=== PATIENT | female | born 1930 | race Caucasian/White ===

== ENCOUNTER → 2016-06-16 | Outpatient (CLI) | payer MEDICARE, MEDICAID | LOC: RAD 08:58 | PROVIDERS: ATTEND Specialist | DX: M54.2 Cervicalgia (principal); M46.02 Spinal enthesopathy, cervical region | CPT/HCPCS: 72050; 72141 ==

== ENCOUNTER → 2017-10-24 | Outpatient (CLI) | payer MEDICARE, MEDICAID ==
--- NOTE | 2017-10-24 11:34 | RADIOLOGY REPORT (SQ) ---
EXAM DESCRIPTION: U/S RETROPERITON (RENAL/AORTA) COMPLETED DATE/TIME: 10/24/2017 11:23 am REASON FOR STUDY: CKD STAGE 3 N18.3 CHRONIC KIDNEY DISEASE, STAGE 3 (MODERATE) R80.9 PROTEINURIA, UNSPECIFIED COMPARISON: 07/29/2011 TECHNIQUE: Dynamic and static grayscale images acquired of the kidneys and bladder and recorded on P ACS. Additional selected color Doppler and spectral images recorded. LIMITATIONS: None. FINDINGS: RIGHT KIDNEY: The right kidney is atrophic in appearance and measures 7.2 cm. A 1.1 x 0. 8 by 1.6 cm cyst. Diffuse increased echogenicity of the kidney, suggests underlying medical renal di sease. No hydronephrosis. No calcifications. LEFT KIDNEY: The left kidney measures 13.1 cm in length, normal size. Multiple cysts are identified . One of the largest measures 4.5 x 4.5 x 2.5 cm in the upper pole. No hydronephrosis. No calcifica tions. Diffuse increased echogenicity of the kidney suggests underlying medical renal disease. BLADDER: No masses. OTHER FINDINGS: Incidentally, fatty liver is suggested. IMPRESSION: 1 The right kidney is atrophic in appearance. 2 Bilateral renal cysts, more numerous on the left. 3. Diffuse increased echogenicity of the kidneys, suggests underlying medical renal disease. TECHNICAL DOCUMENTATION: JOB ID: [id number]- All Rights Reserved Reading location - IP/workstation name: [email or web address]
== END ==
LOC: RAD 09:54
PROVIDERS: ATTEND Internal Medicine Nephrology
DX: I12.9 Hypertensive chronic kidney disease with stage 1 through stage 4 chronic kidney disease, or unspecified chronic kidney disease (principal); N18.3 Chronic kidney disease, stage 3 (moderate); R80.9 Proteinuria, unspecified; Q61.02 Congenital multiple renal cysts
CPT/HCPCS: 76770

== ENCOUNTER → 2018-02-14 | Outpatient (CLI) | payer MEDICARE, MEDICAID ==
--- NOTE | 2018-02-14 15:50 | RADIOLOGY REPORT (SQ) ---
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 TECHNIQUE: Images of the axial and proximal appendicular skeleton are obtained, along with lateral s kull and frontal chest films. LIMITATIONS: None. FINDINGS: AP CHEST: No bony findings. Lungs are clear. LATERAL SKULL: No worrisome bone lesions. AP BOTH HUMERI: No worrisome bone lesions. TWO-VIEW LUMBAR SPINE: No worrisome bone lesions. TWO-VIEW THORACIC SPINE: No worrisome bone lesions. AP PELVIS: No worrisome bone lesions. Marked degenerative changes in the hips. AP BOTH FEMURS: No worrisome bone lesions. OTHER: No other significant finding. IMPRESSION: NO WORRISOME BONE LESIONS. TECHNICAL DOCUMENTATION: JOB ID: [id number] [employer]- All Rights Reserved Reading location - IP/workstation name: [email or web address]
== END ==
LOC: RAD 17:18
PROVIDERS: ATTEND Internal Medicine
DX: D47.2 Monoclonal gammopathy (principal)
CPT/HCPCS: 77075

== ENCOUNTER 2018-04-25 07:06 | Emergency (ER) | payer MEDICARE, MEDICAID ==
[2018-04-25] MEDS ORDERED: ONDANSETRON HCL INJ/PF 4 MG/2 ML SDV IV ONE (08:09)
[2018-04-25 08:16] LABS: ALANINE AMINOTRANSFERASE 24 U/L (9-52); ALBUMIN 4.6 g/dL (3.5-5.0); ALKALINE PHOSPHATASE 164 U/L (38-126); ANION GAP 13 (5-19); ASPARTATE AMINO TRANSFERASE 36 U/L (14-36); BILIRUBIN,DIRECT 0.3 mg/dL (0.0-0.4); BILIRUBIN,TOTAL 0.4 mg/dL (0.2-1.3); BLOOD UREA NITROGEN 65 mg/dL (7-20); CALCIUM 10.9 mg/dL (8.4-10.2); CARBON DIOXIDE 24 mmol/L (22-30); CHLORIDE 105 mmol/L (98-107); CREATINE KINASE 60 U/L (30-135); GLUCOSE 198 mg/dL (75-110); POTASSIUM 4.3 mmol/L (3.6-5.0); SODIUM 141.9 mmol/L (137-145); TOTAL PROTEIN 8.4 g/dL (6.3-8.2)
[2018-04-25 08:17] LABS: HEMOGLOBIN 10.7 g/dL (12.0-15.5); MEAN CORPUSCULAR HEMOGLOBIN 31.2 pg (27.0-33.4); MEAN CORPUSCULAR HGB CONC 33.4 g/dL (32.0-36.0); MEAN CORPUSCULAR VOLUME 93 fl (80-97); PLATELET COUNT 360 10^3/uL (150-450); RED BLOOD COUNT 3.43 10^6/uL (3.72-5.28); RED CELL DISTRIBUTION WIDTH 15.9 % (11.5-14.0); WHITE BLOOD COUNT 15.9 10^3/uL (4.0-10.5)
--- NOTE | 2018-04-25 08:17 | ER Document Report ---
Addendum entered and electronically signed by MEGHA LARA PA-C 04/25/18 15:22: Critical Care Note - Critical Care Note Total time excluding time spent on procedures (mins): 38 - in total with frequent reassessment. Did not initially calculate the added phone calls and consults with Dr. Jackson. Addendum entered and electronically signed by MEGHA LARA PA-C 04/25/18 15:15: Critical Care Note - Critical Care Note Total time excluding time spent on procedures (mins): 20 Original Note: ED General - General Chief Complaint: Nausea/Vomiting Stated Complaint: THROWING UP Time Seen by Provider: 04/25/18 08:07 TRAVEL OUTSIDE OF THE [place] IN LAST 30 DAYS: No - HPI Notes: Patient is an 88-year-old female with a history of chronic anemia, chronic kidney disease stage III in setting of solitary kidney, hypertension who presents to the emergency department complaining of nausea and vomiting over the last day. Patient states that she began vomiting after she ate dinner yesterday. Patient states that since then she has just been dry heaving. She has not been able to eat or drink as much because of the nausea and dry heaving. Patient states that she is still urinating normally and having normal bowel movements otherwise. She denies any significant cardiac history. Patient states that she has not had any pain. Denies drug allergies. Denies any headache, fever, neck pain, changes in vision/speech/mentation/hearing, URI, sore throat, chest pain, palpitations, syncope, cough, shortness of breath, wheeze, dyspnea, abdominal pain, diarrhea, urinary retention, dysuria, hematuria, back pain, loss of control of bowel or bladder, numbness/tingling, saddle anesthesia, muscle paralysis/weakness, or rash. - Related Data Allergies/Adverse Reactions: No Known Allergies Allergy (Verified 04/25/18 07:12) Past Medical History - Social History Smoking Status: Never Smoker Family History: Reviewed & Not Pertinent Patient has suicidal ideation: No Patient has homicidal ideation: No - Past Medical History Cardiac Medical History: Reports: Hx Hypercholesterolemia, Hx Hypertension Denies: Hx Heart Attack Pulmonary Medical History: Denies: Hx Asthma, Hx Bronchitis, Hx COPD, Hx Pneumonia, Hx Tuberculosis Neurological Medical History: Denies: Hx Cerebrovascular Accident, Hx Seizures Renal/ Medical History: Denies: Hx Peritoneal Dialysis Musculoskeletal Medical History: Reports Hx Arthritis Past Surgical History: Reports: Hx Appendectomy, Hx Hysterectomy, Hx Tonsillectomy. Denies: Hx Pacemaker - Immunizations Hx Diphtheria, Pertussis, Tetanus Vaccination: Yes Hx Pneumococcal Vaccination: 01/16/13 Review of Systems - Review of Systems -: Yes All other systems reviewed and negative Physical Exam - Vital signs Vitals: Temp 98.4 F 04/25/18 07:15 - Notes Notes: PHYSICAL EXAMINATION: GENERAL: Well-appearing, well-nourished and in no acute distress. A&Ox4. answers questions appropriately. HEAD: Atraumatic, normocephalic. EYES: Pupils equal round and reactive to light, extraocular movements intact, sclera anicteric, conjunctiva are normal. ENT: Nares patent and without discharge. oropharynx clear without exudates. No tonsilar hypertrophy or erythema. Moist mucous membranes. NECK: Normal range of motion, supple without lymphadenopathy LUNGS: Breath sounds clear to auscultation bilaterally and equal. No wheezes rales or rhonchi. HEART: Regular rate and rhythm without murmurs, rubs, gallops. ABDOMEN: Soft, nontender, nondistended abdomen. No guarding, no rebound. No masses appreciated. Normal bowel sounds present. No CVA tenderness bilaterally. Musculoskeletal: FROM to passive/active. Strength 5+/5. Extremities: No cyanosis, clubbing, or edema b/l. Peripheral pulses 2+. Capillary refill less than 3 seconds. NEUROLOGICAL: Cranial nerves grossly intact. Normal speech, normal gait. PSYCH: Normal mood, normal affect. SKIN: Warm, Dry, normal turgor, no rashes or lesions noted. Course - Re-evaluation Re-evalutation: 04/25/18 12:50 Upon receiving the delta trop result, Dr. Jackson was consulted. EKG also ordered along with the Coags that have already been drawn. Heparin, Lipitor, and aspirin ordered. 2nd EKG showed + change primarily in V2 with elevation, minimal reciprocal (some inversions in 1 and avL). Spoke with Dr. Alonzo at the STEMI hotline for [facility]. If we are going to lytic then he will accept; otherwise, consult with their case specialist. Due to the questionable nature of these new developments, we will consult with the case specialist prior to using lytics per Dr. Jackson. Call placed to speak with their case specialist on-call and EKG's faxed. 04/25/18 13:33 Dr. Moore reviewed EKG and states this is more of an NSTEMI and to treat with heparin and transfer to hospitalist service. Waiting for call back from the hospitalist at this time. 04/25/18 13:57 Dr. Ford, hospitalist, accepted pt to [facility]. Pt has no new concerns or complaints. Vitals acceptable. 04/25/18 15:10 Transport arrived for the patient. No new concerns or complaints. Vitals acceptable. Pt stable for transport. - Vital Signs Vital signs: Temp Pulse Resp BP Pulse Ox 98.4 F 102 H 12 146/73 H 96 04/25/18 07:18 04/25/18 07:18 04/25/18 14:01 04/25/18 14:00 04/25/18 14:01 - Laboratory Result Diagrams: 04/25/18 07:44 04/25/18 07:44 Laboratory results interpreted by me: 04/25/18 04/25/18 04/25/18 07:44 07:44 11:10 WBC 15.9 H RBC 3.43 L Hgb 10.7 L Hct 32.0 L RDW 15.9 H Seg Neuts % (Manual) 86 H Lymphocytes % (Manual) 7 L Abs Neuts (Manual) 13.7 H BUN 65 H Creatinine 2.83 H Est GFR ( Amer) 19 L Est GFR (Non-Af Amer) 16 L Glucose 198 H Calcium 10.9 H Alkaline Phosphatase 164 H Total Protein 8.4 H Urine Protein >=500 H Urine Blood MODERATE H Ur Leukocyte Esterase LARGE H Discharge - Discharge Clinical Impression: NSTEMI (non-ST elevated myocardial infarction), Acute UTI (urinary tract infection) CKD (chronic kidney disease) Qualifiers: Chronic kidney disease stage: unspecified stage Qualified Code(s): N18.9 - Chronic kidney disease, unspecified Condition: Stable Disposition: [facility] Referrals: AIMEE GONZALES MD [Primary Care Provider] - Follow up as needed
--- NOTE | 2018-04-25 08:24 | RADIOLOGY REPORT (SQ) ---
EXAM DESCRIPTION: CHEST SINGLE VIEW COMPLETED DATE/TIME: 04/25/2018 8:01 am REASON FOR STUDY: chest pain COMPARISON: 08/13/2008 EXAM PARAMETERS: NUMBER OF VIEWS: One view. TECHNIQUE: Single frontal radiographic view of the chest acquired. RADIATION DOSE: NA LIMITATIONS: None. FINDINGS: LUNGS AND PLEURA: No airspace opacity. There is a lucency at the lateral margin of the le ft lung base. No pleural effusion. Hyperinflation MEDIASTINUM AND HILAR STRUCTURES: No masses. Contour normal. HEART AND VASCULAR STRUCTURES: Heart normal in size. Normal vasculature. BONES: No acute findings. HARDWARE: None in the chest. OTHER: No other significant finding. IMPRESSION: There is a lucency of the lateral margin of the left lung base concerning for a small pn eumothorax, however if present this is an unusual configuration at the left lung base without evidenc e a more typical appearing apical component. Correlate for clinical concern such as rib fracture. C onsider follow-up PA and lateral radiographs or CT if indicated by clinical concern. There is no dis placed fracture or other obvious etiology. TECHNICAL DOCUMENTATION: JOB ID: [id number] [employer]- All Rights Reserved Reading location - IP/workstation name: [email or web address]
[2018-04-25 08:28] LABS: CREATINE KINASE MB 1.14 ng/mL (<4.55); TROPONIN I 0.022 ng/mL
[2018-04-25 08:41] LABS: ABSOLUTE LYMPHOCYTES# (MANUAL) 1.1 10^3/uL (0.5-4.7); ABSOLUTE MONOCYTES # (MANUAL) 1.1 10^3/uL (0.1-1.4); ABSOLUTE NEUTROPHILS# (MANUAL) 13.7 10^3/uL (1.7-8.2); BASOPHILS % (MANUAL) 0 % (0-2); EOSINOPHILS % (MANUAL) 0 % (0-6); LYMPHOCYTES % (MANUAL) 7 % (13-45); MONOCYTES % (MANUAL) 7 % (3-13); SEGMENTED NEUTROPHILS % (MAN) 86 % (42-78); TOTAL CELLS COUNTED 100
[2018-04-25 08:42] LABS: ANISOCYTOSIS SLIGHT; OVALOCYTES SLIGHT; PLATELET COMMENT ADEQUATE; POIKILOCYTOSIS SLIGHT; POLYCHROMASIA SLIGHT
[2018-04-25] MEDS: NORMAL SALINE 1000 ML 1,000 ML IV PRN ×2 (09:05→10:21)
[2018-04-25] MEDS ORDERED: MORPHINE SULFATE 10 MG/ML INJ IV ONE (09:42)
[2018-04-25] MEDS ORDERED: FENTANYL CITRATE INJ/PF 100 MCG/2 ML AMPUL IV ONE (11:07)
[2018-04-25 11:31] LABS: APPEARANCE,URINE CLOUDY; BILIRUBIN,URINE NEGATIVE (NEGATIVE); COLOR,URINE YELLOW; GLUCOSE, URINE NEGATIVE (NEGATIVE); KETONES,URINE NEGATIVE (NEGATIVE); LEUKOCYTE ESTERASE,URINE LARGE (NEGATIVE); NITRITE,URINE NEGATIVE (NEGATIVE); PROTEIN,URINE >=500 mg/dL (NEGATIVE); URINE SPECIFIC GRAVITY 1.011; UROBILINOGEN,URINE NEGATIVE mg/dL (<2.0)
--- NOTE | 2018-04-25 12:10 | RADIOLOGY REPORT (SQ) ---
EXAM DESCRIPTION: CHEST 2 VIEWS COMPLETED DATE/TIME: 04/25/2018 12:01 pm REASON FOR STUDY: re-eval LLL after spirometry COMPARISON: 04/25/2018 at 0759 hours. EXAM PARAMETERS: NUMBER OF VIEWS: two views TECHNIQUE: Digital Frontal and Lateral radiographic views of the chest acquired. RADIATION DOSE: NA LIMITATIONS: none FINDINGS: LUNGS AND PLEURA: Mild elevation of the left hemidiaphragm. Mild interstitial prominence. No opacities, masses or pneumothorax. No pleural effusion. MEDIASTINUM AND HILAR STRUCTURES: No masses or contour abnormalities. HEART AND VASCULAR STRUCTURES: Heart normal size. No evidence for failure. BONES: No acute findings. HARDWARE: None in the chest. OTHER: No other significant finding. IMPRESSION: MILD CHRONIC CHANGES WITH MILD INTERSTITIAL PROMINENCE. NO ACUTE RADIOGRAPHIC FINDING I N THE CHEST. NO PNEUMOTHORAX. TECHNICAL DOCUMENTATION: JOB ID: [id number] [employer]- All Rights Reserved Reading location - IP/workstation name: [email or web address]
[2018-04-25] MEDS ORDERED: CEFTRIAXONE 1 GM/D5W RTU 1 GM/50 ML RTUPB IV ONE (12:15)
[2018-04-25] MEDS ORDERED: ASPIRIN 81 MG TABLET, CHEWABLE PO ONE (12:29)
[2018-04-25] MEDS ORDERED: HEPARIN SOD (PORCINE) 1,000 UNIT/ML 10 ML VIAL IV ONE (12:32)
[2018-04-25] MEDS ORDERED: HEPARIN SODIUM,PORCINE/D5W 25,000 UNIT/250 ML RTUINJ IV PRN (12:32)
[2018-04-25] MEDS ORDERED: ATORVASTATIN CALCIUM 80 MG TABLET PO ONE (12:33)
--- NOTE | 2018-04-25 12:57 | EKG REPORT ---
SEVERITY:- ABNORMAL ECG - SINUS RHYTHM PROBABLE LEFT ATRIAL ABNORMALITY PROBABLE LEFT VENTRICULAR HYPERTROPHY : Confirmed by: Martin Mccormick MD 25-Apr-2018 12:57:00
--- NOTE | 2018-04-25 12:57 | EKG REPORT ---
SEVERITY:- ABNORMAL ECG - SINUS TACHYCARDIA FIRST DEGREE AV BLOCK LVH BY VOLTAGE PROBABLE INFERIOR INFARCT, OLD ST ELEVATION, CONSIDER ANTERIOR INJURY : Confirmed by: Martin Mccormick MD 25-Apr-2018 12:56:37
[2018-04-25] MEDS ORDERED: HEPARIN SOD (PORCINE) 1,000 UNIT/ML 10 ML VIAL IV PRN (13:30)
[2018-04-25 13:50] LABS: INTERNATIONAL RATION (INR) 1.04; PROTHROMBIN TIME 14.2 SEC (11.4-15.4)
[2018-04-25 13:51] LABS: PARTIAL THROMBOPLASTIN TIME 34.7 SEC (23.5-35.8)
[2018-04-25 14:48] VITALS: BP 146/73
== END 2018-04-25 15:05 | disposition short-term general hospital (02) ==
LOC: ER 07:06
DX: I21.4 Non-ST elevation (NSTEMI) myocardial infarction (principal); N18.3 Chronic kidney disease, stage 3 (moderate); I12.9 Hypertensive chronic kidney disease with stage 1 through stage 4 chronic kidney disease, or unspecified chronic kidney disease; Q60.0 Renal agenesis, unilateral
CPT/HCPCS: 93005; 36415; 87086; 82553; 82550; 83690; 85025; 85610; 85730; 87088; 80053; 81001; 84484; 87186; 71046; 71045; 93010; J1644 ×2; A9270 ×2; J3010; J2270; J2405; J7030; J0696; 96361; 96365; 96366; 96375; 96376; 99291

== ENCOUNTER 2018-05-12 20:22 | Inpatient (IN) | payer MEDICARE, MEDICAID ==
[2018-05-12] MEDS ORDERED: NORMAL SALINE 1000 ML 500 ML IV ONE (20:44)
[2018-05-12 20:54] LABS: ABSOLUTE EOSINOPHILS # (AUTO) 0.1 10^3/uL (0.0-0.6); ABSOLUTE LYMPHOCYTES (AUTO) 0.9 10^3/uL (0.5-4.7); ABSOLUTE MONOCYTES (AUTO) 0.9 10^3/uL (0.1-1.4); ABSOLUTE NEUT (AUTO) 14.4 10^3/uL (1.7-8.2); BASOPHILS % (AUTO) 0.2 % (0-2); EOSINOPHILS % (AUTO) 0.6 % (0-6); HEMATOCRIT 28.2 % (36.0-47.0); HEMOGLOBIN 9.1 g/dL (12.0-15.5); LYMPHOCYTES % (AUTO) 5.5 % (13-45); MEAN CORPUSCULAR HEMOGLOBIN 30.3 pg (27.0-33.4); MEAN CORPUSCULAR HGB CONC 32.3 g/dL (32.0-36.0); MEAN CORPUSCULAR VOLUME 94 fl (80-97); MONOCYTES % (AUTO) 5.3 % (3-13); PLATELET COUNT 524 10^3/uL (150-450); RED BLOOD COUNT 3.01 10^6/uL (3.72-5.28); RED CELL DISTRIBUTION WIDTH 17.4 % (11.5-14.0); SEGMENTED NEUTROPHILS % (AUTO) 88.4 % (42-78); TOTAL CELLS COUNTED % (AUTO) 100 %; WHITE BLOOD COUNT 16.3 10^3/uL (4.0-10.5)
[2018-05-12] MEDS ORDERED: ASPIRIN 81 MG TABLET, CHEWABLE PO ONE (21:07)
[2018-05-12 21:08] LABS: ALANINE AMINOTRANSFERASE 28 U/L (9-52); ALBUMIN 3.9 g/dL (3.5-5.0); ALKALINE PHOSPHATASE 132 U/L (38-126); ANION GAP 14 (5-19); ASPARTATE AMINO TRANSFERASE 67 U/L (14-36); BILIRUBIN,DIRECT 0.4 mg/dL (0.0-0.4); BILIRUBIN,TOTAL 0.6 mg/dL (0.2-1.3); BLOOD UREA NITROGEN 104 mg/dL (7-20); CALCIUM 9.2 mg/dL (8.4-10.2); CARBON DIOXIDE 22 mmol/L (22-30); CHLORIDE 101 mmol/L (98-107); GLUCOSE 195 mg/dL (75-110); POTASSIUM 4.6 mmol/L (3.6-5.0); SODIUM 136.8 mmol/L (137-145); TOTAL PROTEIN 6.9 g/dL (6.3-8.2)
[2018-05-12] MEDS ORDERED: FUROSEMIDE INJ/PF 20 MG/2 ML SDV IV ONE (21:08)
[2018-05-12] MEDS ORDERED: HEPARIN SOD (PORCINE) 1,000 UNIT/ML 10 ML VIAL IV ONE (21:08)
[2018-05-12] MEDS ORDERED: HEPARIN SODIUM,PORCINE/D5W 25,000 UNIT/250 ML RTUINJ IV PRN (21:08)
--- NOTE | 2018-05-12 21:13 | ER Document Report ---
ED General - General Chief Complaint: General Weakness Stated Complaint: WEAKNESS Time Seen by Provider: 05/12/18 20:42 Cannot obtain history due to: Unstable vital signs, Altered mental status Notes: Patient is an 88-year-old female with a past medical history of previous myocardial infarction, hyperlipidemia, hypertension, presents with progressive weakness and deterioration since being discharged from [facility] on the 11th of this month. Family notes that the patient has had increasing bilateral lower extremity edema, has had increasing difficulty getting out of bed. They also report that she has been sleeping in a recliner as she has been unable to lie flat in her bed due to orthopnea. They contacted EMS today as patient was increasingly weak and less responsive. The patient asks me to obtain the majority of history from her son but does concur with what her son is reporting. TRAVEL OUTSIDE OF THE [place] IN LAST 30 DAYS: No - Related Data Allergies/Adverse Reactions: No Known Allergies Allergy (Verified 04/25/18 07:12) Past Medical History - General Information source: Patient, Relative - Social History Smoking Status: Never Smoker Frequency of alcohol use: None Drug Abuse: None Lives with: Family Family History: Reviewed & Not Pertinent - Past Medical History Cardiac Medical History: Reports: Hx Hypercholesterolemia, Hx Hypertension Denies: Hx Heart Attack Pulmonary Medical History: Denies: Hx Asthma, Hx Bronchitis, Hx COPD, Hx Pneumonia, Hx Tuberculosis Neurological Medical History: Denies: Hx Cerebrovascular Accident, Hx Seizures Renal/ Medical History: Denies: Hx Peritoneal Dialysis Musculoskeletal Medical History: Reports Hx Arthritis Past Surgical History: Reports: Hx Appendectomy, Hx Hysterectomy, Hx Tonsillectomy. Denies: Hx Pacemaker - Immunizations Hx Diphtheria, Pertussis, Tetanus Vaccination: Yes Hx Pneumococcal Vaccination: 01/16/13 Review of Systems - Review of Systems Notes: Constitutional: Negative for fever. Positive for generalized weakness HENT: Negative for sore throat. Eyes: Negative for visual changes. Cardiovascular: Negative for chest pain. Respiratory: Positive for shortness of breath and orthopnea Gastrointestinal: Negative for abdominal pain, vomiting or diarrhea. Genitourinary: Negative for dysuria. Musculoskeletal: Negative for back pain. Skin: Negative for rash. Neurological: Negative for headaches, weakness or numbness. 10 point ROS negative except as marked above and in HPI. Physical Exam - Vital signs Vitals: Resp 26 H 05/12/18 22:00 Interpretation: Hypotensive, Tachycardic, Hypoxic Notes: PHYSICAL EXAMINATION: GENERAL: Frail, elderly female. Somewhat lethargic but does respond appropriately to questions HEAD: Atraumatic, normocephalic. EYES: Pupils equal round and reactive to light, extraocular movements intact, sclera anicteric, conjunctiva are normal. ENT: nares patent, oropharynx clear without exudates. Moderately dry mucous membranes. NECK: Normal range of motion, supple without lymphadenopathy LUNGS: Mild tachypnea, rales and crackles at the base bilaterally. HEART: Regular tachycardia without murmurs ABDOMEN: Soft, nontender, normoactive bowel sounds. No guarding, no rebound. No masses appreciated. EXTREMITIES: 4+ pitting edema in the bilateral lower extremities that is equal and symmetric. No cyanosis. NEUROLOGICAL: No focal neurological deficits. Moves all extremities spontaneo usly and on command. PSYCH: Normal mood, normal affect. SKIN: Warm, Dry, normal turgor, no rashes or lesions noted. Course - Re-evaluation Re-evalutation: 05/12/18 21:09 Documentation is delayed as I been at this patient's bedside continuously since her arrival. In summary the patient's EKG was brought to me shortly after I pic ked up her chart and reveals what appears to be a new left bundle branch block with an underlying STEMI. The patient has discordant ST elevations in leads V3 through 4 and concordant elevation in V5. This left bundle branch block is also new relative to when she was here on the . Patient is not having chest pain although has been increasingly weak and lethargic since being discharged home on the . Patient also has 4+ pitting edema in the bilateral lower extremities that is equal and symmetric, rales at the bases bilaterally and family reports a history of orthopnea at home. Patient is borderline hypotensive, initial systolic blood pressure of 91. She actually has a history of hypertension. Patient is also noted to be borderline hypoxemic between 91 and 92% on room air and does not have an oxygen dependency at baseline. I suspect that the patient has developed a systolic congestive picture since having her MS earlier this month and may be having a new MS tonight. I had an extended conversation with the patient who does have capacity to make her own decisions as well as her son and [id number] at the bedside. At this point we have agreed that the patient at no point would be willing to undergo a cardiac catheterization even if this is a life saving measure. This is the patient's position as well earlier this month. She is clear to state that she does not wish to go through such a procedure. She also states that she is a DNR and DNI. The patient is willing to receive medical management. This would include diuresis, anticoagulation, and undergo diagnostic testing. She would also like to focus on her comfort. At this point although I do suspect the patient may be having an acute MS given her preference that she does not want to undergo any form of aggressive therapy will currently withhold TNKase as well as transfer for cardiac catheterization. I have begun the patient on aspirin, heparin as well as furosemide. She will receive laboratories, chest x-ray. Patient is in guarded condition, will reassess at regular intervals 05/12/18 21:57 Patient's laboratories show rapid worsening of her renal function, troponin at 6.9. I have gone back to discuss with the patient and family. We have again spoken for approximately 20-25 minutes. After review of the patient's multisystem organ failure which at this point includes cardiac dysfunction, pulmonary dysfunction secondary to pulmonary edema, renal dysfunction, as well as the patient's advanced age and chronic debility at baseline the patient and family have elected to proceed comfort measures only. They understand that she will as a result of her current condition. They are very clear to state that they reject all current therapies medical or otherwise and only want measur es for her comfort. They have declined further testing. I believe this is very appropriate. The patient has been made formally comfort measures, monitor will be discontinued. I have ordered morphine as needed for pain or air hunger. I have ordered anxiolysis. - Vital Signs Vital signs: Temp Pulse Resp BP Pulse Ox 97.5 F 96 16 95/58 L 93 05/13/18 00:00 05/13/18 00:00 05/13/18 00:00 05/13/18 00:00 05/13/18 00:00 - Laboratory Result Diagrams: 05/12/18 19:53 05/12/18 19:53 Laboratory results interpreted by me: 05/12/18 05/12/18 05/12/18 19:53 19:53 19:53 WBC 16.3 H RBC 3.01 L Hgb 9.1 L Hct 28.2 L RDW 17.4 H Plt Count 524 H Seg Neutrophils % 88.4 H Lymphocytes % 5.5 L Absolute Neutrophils 14.4 H APTT 35.9 H Sodium 136.8 L BUN 104 H Creatinine 4.69 H Est GFR ( Amer) 11 L Est GFR (Non-Af Amer) 9 L Glucose 195 H AST 67 H Alkaline Phosphatase 132 H NT-Pro-B Natriuret Pep 05/12/18 19:53 WBC RBC Hgb Hct RDW Plt Count Seg Neutrophils % Lymphocytes % Absolute Neutrophils APTT Sodium BUN Creatinine Est GFR ( Amer) Est GFR (Non-Af Amer) Glucose AST Alkaline Phosphatase NT-Pro-B Natriuret Pep [id number] H - EKG Interpretation by Me Additional EKG results interpreted by me: 05/12/18 22:01 New onset left bundle branch block, positive Claudine's criteria, meet STEMI criteria Critical Care Note - Critical Care Note Total time excluding time spent on procedures (mins): 55 Comments: Critical care time spent obtaining history from patient or surrogate, discussions with consultants, development of treatment plan with patient or surrogate, evaluation of patient's response to treatment, examination of patient, ordering and performing treatments and interventions, ordering and review of laboratory studies, re-evaluation of patient's condition, ordering and review of radiographic studies and review of old charts Discharge - Discharge Clinical Impression: Hypoxia, Bilateral lower extremity edema Congestive heart failure Qualifiers: Heart failure type: unspecified Heart failure chronicity: unspecified Qualified Code(s): I50.9 - Heart failure, unspecified STEMI (ST elevation myocardial infarction) Qualifiers: Involved coronary artery: unspecified coronary artery Qualified Code(s): I21.3 - ST elevation (STEMI) myocardial infarction of unspecified site Condition: Critical Disposition: ADMITTED INPATIENT Admitting Provider: [facility]orn[facility] Admitted: Medical Floor
[2018-05-12 21:33] LABS: INTERNATIONAL RATION (INR) 1.16; PROTHROMBIN TIME 15.4 SEC (11.4-15.4)
[2018-05-12 21:34] LABS: PARTIAL THROMBOPLASTIN TIME 35.9 SEC (23.5-35.8)
[2018-05-12] MEDS ORDERED: MORPHINE SULFATE 10 MG/ML INJ IV PRN (21:59)
[2018-05-12] MEDS ORDERED: HALOPERIDOL LACTATE INJ 5 MG/1 ML VIAL IV PRN (22:00)
[2018-05-13] MEDS: MORPHINE SULFATE 10 MG/ML INJ IV PRN ×4 (00:39→23:06)
[2018-05-13] MEDS: ALPRAZOLAM 0.5 MG TABLET PO PRN ×3 (00:44→22:57)
--- NOTE | 2018-05-13 08:57 | EKG REPORT ---
SEVERITY:- ABNORMAL ECG - SINUS TACHYCARDIA PROBABLE LEFT ATRIAL ABNORMALITY LEFT BUNDLE BRANCH BLOCK INFERIOR INFARCT, ACUTE LATERAL LEADS ARE ALSO INVOLVED : Confirmed by: Henna Olivo MD 13-May-2018 08:57:01
--- NOTE | 2018-05-13 12:39 | PDOC H&P ---
History of Present Illness Admission Date/PCP: 05/12/18 22:10 AIMEE GONZALES MD History of Present Illness: RASHEL MAYES is a 88 year old female, she has a history of chronic kidney disease stage III, monoclonal gammopathy of undetermined significance, hypertension, she came to the emergency room last night for evaluation of generalized weakness, she was just transferred from this hospital for [facility] for the management of acute ST elevated DE on April 25, 2018. At the time she was managed conservatively, when she presented last night to the emergency room he twelve-lead EKG was done, it demonstrated Q waves in inferior leads and also a new left bundle branch block, serum troponin was elevated with elevated BNP this suggests ST elevated DE there was associated acute kidney injury with acute systolic heart failure, BNP was very elevated, she has solitary kidney, she was also hemodynamically unstable, because of all this developments family opted to not pursue any intervention after discussion with the ER providers they decided to make a comfort care. I saw her on the floor today with the family, she is alert, she is not in any kind of discomfort, she has extremely large bilateral lower extremity edema, a chest x-ray was not done in the ER last night partly because family refused any further testing. She is in CHF, patient is presently comfort care, if she does not in 24- 48 hours she will be transferred to hospice facility. Past Medical History Cardiac Medical History: Reports: Hyperlipidema, Hypertension Renal/ Medical History: Reports: Chronic Kidney Disease, Other - Chronic kidney disease stage IV Malignancy Medical History: Reports: Other - Monoclonal gammopathy of undetermined significance Musculoskeltal Medical History: Reports: Arthritis Hematology: Reports: Anemia, Other - Anemia of chronic disease Past Surgical History Past Surgical History: Reports: Appendectomy, Hysterectomy, Tonsillectomy Social History Lives with: Family Smoking Status: Never Smoker Hx Recreational Drug Use: No Hx Prescription Drug Abuse: No Family History Family History: Reviewed & Not Pertinent Parental Family History Reviewed: Yes Children Family History Reviewed: Yes Sibling(s) Family History Reviewed.: Yes Medication/Allergy Home Medications: Allopurinol [Zyloprim 100 Mg Tablet] 100 mg PO DAILY 07/29/11 Alprazolam [Niravam] 0.5 mg PO Q12HP PRN 07/29/11 Amitriptyline HCl [Elavil 25 Mg Tablet] 25 mg PO QHS 07/29/11 Amlodipine Besylate [Norvasc 10 mg Tablet] 5 mg PO DAILY 07/29/11 Ferrous Sulfate 325 mg PO DAILY 07/29/11 Multivitamins W-Minerals [Multivitamins With Minerals] 1 each PO DAILY 07/29/11 Pravastatin Sodium 40 mg PO QHS 07/29/11 Clopidogrel Bisulfate [Plavix 75 mg Tablet] 75 mg PO DAILY 05/13/18 Flu Vacc [id number] 36Mos Up/Pf [Fluzone Quad [id number] Syringe] 60 mcg IM .RECEIVED 03/01/18 MDD 03/01/18 05/13/18 Furosemide [Lasix 40 mg Tablet] 40 mg PO QAM 05/13/18 Lactulose [Constulose 10 gm/15 mL Oral Solution] 10 ml PO BID 05/13/18 Losartan/Hydrochlorothiazide [Losartan-Hctz 100-25 mg Tab] 1 each PO DAILY 05/13/18 Metolazone [Zaroxolyn 2.5 Mg Tablet] 2.5 mg PO DAILY 05/13/18 Metolazone [Zaroxolyn] 10 mg PO DAILY MDD FILLED 05/09 FOR 10 DAYS 05/13/18 Metoprolol Succinate [Toprol Xl 25 mg Tab.sr] 25 mg PO DAILY 05/13/18 Sodium Bicarbonate [Sodium Bicarbonate 650 mg Tablet] 650 mg PO BID 05/13/18 Allergies/Adverse Reactions: No Known Allergies Allergy (Verified 04/25/18 07:12) Review of Systems ROS unobtainable: Due to mental status Physical Exam Vital Signs: Temp Pulse Resp BP Pulse Ox 97.5 F 96 16 95/58 L 93 05/13/18 00:00 05/13/18 00:00 05/13/18 00:00 05/13/18 00:00 05/13/18 00:00 Intake & Output 05/12/18 05/13/18 05/14/18 06:59 06:59 06:59 Output Total 250 Balance -250 Weight 86.4 kg General appearance: PRESENT: other - Patient is alert not in any acute distress Eye exam: PRESENT: PERRLA Respiratory exam: PRESENT: clear to auscultation bethanie, rales Cardiovascular exam: PRESENT: +S1, +S2, systolic murmur GI/Abdominal exam: PRESENT: soft Extremities exam: PRESENT: pedal edema, other - She has bilateral lower extremity edema up to the thighs Neurological exam: PRESENT: alert Results Laboratory Results: 05/12/18 19:53 05/12/18 19:53 05/12/18 05/12/18 19:53 19:53 WBC 16.3 H RBC 3.01 L Hgb 9.1 L Hct 28.2 L MCV 94 MCH 30.3 MCHC 32.3 RDW 17.4 H Plt Count 524 H Seg Neutrophils % 88.4 H Lymphocytes % 5.5 L Monocytes % 5.3 Eosinophils % 0.6 Basophils % 0.2 Absolute Neutrophils 14.4 H Absolute Lymphocytes 0.9 Absolute Monocytes 0.9 Absolute Eosinophils 0.1 Absolute Basophils 0.0 Sodium 136.8 L Potassium 4.6 Chloride 101 Carbon Dioxide 22 Anion Gap 14 BUN 104 H Creatinine 4.69 H Est GFR ( Amer) 11 L Est GFR (Non-Af Amer) 9 L Glucose 195 H Calcium 9.2 Total Bilirubin 0.6 AST 67 H ALT 28 Alkaline Phosphatase 132 H Total Protein 6.9 Albumin 3.9 05/12/18 05/12/18 19:53 19:53 Troponin I 6.740 NT-Pro-B Natriuret Pep [id number] H Assessment & Plan - Diagnosis (1) Acute ST elevation myocardial infarction Qualifiers: Involved coronary artery: unspecified coronary artery Qualified Code(s): I21.3 - ST elevation (STEMI) myocardial infarction of unspecified site Is this a current diagnosis for this admission?: Yes Plan: Patient did not want any coronary intervention or any further treatment (2) Acute systolic heart failure Is this a current diagnosis for this admission?: Yes Plan: Give Lasix 40 mg (3) Acute kidney injury Is this a current diagnosis for this admission?: Yes (4) Chronic kidney disease, stage IV (severe) Is this a current diagnosis for this admission?: Yes (5) Monoclonal gammopathy of undetermined significance Is this a current diagnosis for this admission?: Yes - Plan Summary Plan Summary: Hospice consultation to be obtained
[2018-05-13] MEDS: FUROSEMIDE INJ/PF 40 MG/4 ML SDV IV SCH (15:00)
[2018-05-13 20:57] VITALS: BP 99/56
[2018-05-14] MEDS: FUROSEMIDE INJ/PF 40 MG/4 ML SDV IV SCH (09:02)
--- NOTE | 2018-05-14 16:37 | PDOC PROGRESS REPORT ---
Subjective Progress Note for:: 05/14/18 Subjective:: Patient seen by the bedside she is alert she was seen by the hospice nurse today, plan is to transfer to hospice once a bed is available Reason For Visit: COMFORT CARE Physical Exam Vital Signs: Temp Pulse Resp BP Pulse Ox 98.4 F 97 16 99/56 L 90 L 05/13/18 19:55 05/13/18 19:55 05/13/18 19:55 05/13/18 19:55 05/13/18 19:55 Intake & Output 05/13/18 05/14/18 05/15/18 06:59 06:59 06:59 Intake Total 1158 Output Total 250 600 Balance -250 558 Weight 86.4 kg 86.4 kg General appearance: PRESENT: no acute distress Eye exam: PRESENT: PERRLA Respiratory exam: PRESENT: clear to auscultation bethanie Neurological exam: PRESENT: alert Results Laboratory Results: 05/12/18 19:53 05/12/18 19:53 05/12/18 05/12/18 19:53 19:53 Troponin I 6.740 NT-Pro-B Natriuret Pep [id number] H Assessment & Plan - Diagnosis (1) Acute ST elevation myocardial infarction Qualifiers: Involved coronary artery: unspecified coronary artery Qualified Code(s): I21.3 - ST elevation (STEMI) myocardial infarction of unspecified site Is this a current diagnosis for this admission?: Yes Plan: Patient do not want any intervention done at this time awaiting placement at a hospice facility, overall prognosis is very poor (2) Acute systolic heart failure Is this a current diagnosis for this admission?: Yes (3) Acute kidney injury Is this a current diagnosis for this admission?: Yes (4) Chronic kidney disease, stage IV (severe) Is this a current diagnosis for this admission?: Yes (5) Monoclonal gammopathy of undetermined significance Is this a current diagnosis for this admission?: Yes
[2018-05-14] MEDS: ALPRAZOLAM 0.5 MG TABLET PO PRN (20:50)
[2018-05-14] MEDS: MORPHINE SULFATE 10 MG/ML INJ IV PRN (20:50)
--- NOTE | 2018-05-15 08:37 | Death Summary ---
Summary Date : 05/15/18 Time of :: 07:15 Resuscitation Status: Comfort Measures Only - Final Diagnosis (1) Acute ST elevation myocardial infarction Is this a current diagnosis for this admission?: Yes (2) Acute systolic heart failure Is this a current diagnosis for this admission?: Yes (3) Acute kidney injury Is this a current diagnosis for this admission?: Yes (4) Chronic kidney disease, stage IV (severe) Is this a current diagnosis for this admission?: Yes (5) Monoclonal gammopathy of undetermined significance Is this a current diagnosis for this admission?: Yes Hospital Course:: Patient 88-year-old female with history of chronic kidney disease stage III she came to the emergency room on 05/12/2018 with altered mental status she was diagnosed with acute ST elevated [place] family and patient decided to be comfort care, she was made a DNR status. The plan was to transfer to hospice but she this morning
== END 2018-05-15 09:37 ==
LOC: ER 20:22 → EH 22:10 → 5 23:55
PROVIDERS: ADMIT Internal Medicine; ATTEND Internal Medicine
DX: I21.3 ST elevation (STEMI) myocardial infarction of unspecified site (principal); I50.23 Acute on chronic systolic (congestive) heart failure; I13.0 Hypertensive heart and chronic kidney disease with heart failure and stage 1 through stage 4 chronic kidney disease, or unspecified chronic kidney disease; N18.4 Chronic kidney disease, stage 4 (severe); N17.9 Acute kidney failure, unspecified; Z66 Do not resuscitate; E78.5 Hyperlipidemia, unspecified; I44.7 Left bundle-branch block, unspecified; D64.9 Anemia, unspecified; D47.2 Monoclonal gammopathy; Z79.01 Long term (current) use of anticoagulants; Z79.899 Other long term (current) drug therapy
CPT/HCPCS: 36415; 80053; 83880; 84484; 85025; 85610; 85730; 93005; 93010; 96374; 99291; J1940; J2270